=== PATIENT | male | born 2000 | race Hispanic/Latino ===

== ENCOUNTER 2021-02-08 16:29 | Outpatient (CLI) | payer OTHER | END 2021-02-08 16:30 | disposition home or self-care (01) | LOC: BURRAD 16:29 | PROVIDERS: ATTEND Family Medicine | DX: B34.9 Viral infection, unspecified (principal) | CPT/HCPCS: 71046 ==

== ENCOUNTER 2024-02-26 09:51 | Outpatient (CLI) | payer OTHER | END 2024-02-26 09:52 | disposition home or self-care (01) | LOC: BURRAD 09:51 | PROVIDERS: ATTEND Nurse Practitioner Family | DX: M79.645 Pain in left finger(s) (principal) ==